=== PATIENT | male | born 2000 | race Caucasian/White ===

== ENCOUNTER 2019-01-28 10:13 | Emergency (ER) | payer OTHER ==
[2019-01-28 10:26] VITALS: BMI 28.1
[2019-01-28] MEDS ORDERED: KETOROLAC TROMETHAMINE 30 MG/1 ML VIAL IVPUSH ONE (11:08)
[2019-01-28] MEDS ORDERED: SODIUM CHLORIDE 1,000 ML IV STA (11:08)
[2019-01-28] MEDS ORDERED: KETOROLAC TROMETHAMINE 30 MG/1 ML VIAL ONE (11:15)
--- NOTE | 2019-01-28 11:25 | PDOC ---
History of Present Illness - General Chief Complaint: Pain, Acute Stated Complaint: KIDNEY PAIN Time Seen by Provider: 01/28/19 10:45 History Source: Patient Exam Limitations: No Limitations - History of Present Illness Travel History: No Initial Comments: 01/28/19 11:25 18 y/o male presents to ED with complaints of right flank pain along with urinary frequency for the past few days worsening in severity. Patient states history of renal colic without surgical intervention followed by Dr. Cage. Timing/Duration: reports: getting worse Quality: reports: moderate, sharpness Abdominal Pain Onset Location: reports: RUQ, flank Pain Radiation: reports: no radiation Activities at Onset: reports: none Aggravating Factors: improves with: None Alleviating Factors: improves with: None Past History - Travel Traveled outside of the country in the last 30 days: No Close contact w/someone who was outside of country & ill: No - Past Medical History Allergies/Adverse Reactions: Allergies Allergy/AdvReac Type Severity Reaction Status Date / Time No Known Allergies Allergy Verified 01/28/19 10:20 Kidney Stones: Yes - Psycho Social/Smoking Cessation Hx Smoking History: Never smoked Hx Alcohol Use: No Drug/Substance Use Hx: No Patient Lives Alone: No Lives with/in: parents Review of Systems - Review of Systems Able to Perform ROS?: Yes Constitutional: No: Symptoms Reported HEENTM: No: Symptoms Reported Respiratory: No: Symptoms reported Cardiac (ROS): No: Symptoms Reported ABD/GI: Yes: Abdominal cramping : Yes: Flank Pain Musculoskeletal: No: Symptoms Reported Integumentary: No: Symptoms Reported Neurological: No: Symptoms reported *Physical Exam - Vital Signs Last Vital Signs Temp Pulse Resp BP Pulse Ox 98.3 F 66 16 134/87 99 01/28/19 10:20 01/28/19 10:20 01/28/19 10:20 01/28/19 10:20 01/28/19 10:20 - Physical Exam General Appearance: Yes: Nourished, Appropriately Dressed. No: Apparent Distress Gastrointestinal/Abdominal: positive: Normal Bowel Sounds, Soft, Tenderness ( Right upper quadrant right flank). negative: Distended Musculoskeletal: positive: CVA Tenderness (R) Extremity: positive: Normal Inspection Integumentary: positive: Normal Color, Warm, Moist Neurologic: positive: Motor Strength 5/5 (Ambulatory) ED Treatment Course - LABORATORY CBC & Chemistry Diagram: 01/28/19 11:20 01/28/19 11:20 - RADIOLOGY Radiology Studies Ordered: Category Date Time Status SPIRAL- RENAL-STONE CT [CT] Stat CT Scan 01/28/19 11:10 Ordered Medical Decision Making - Medical Decision Making 01/28/19 12:00 Chief complaint: Right flank and right upper quadrant pain for the past few days worsened in severity. Patient with history of renal colic exam: Right CVA and right upper quadrant right flank tenderness on exam vital signs stable. Plan : Labs, urine, IV fluids, Toradol and spiral CT ordered 01/28/19 12:08 Laboratory Tests 01/28/19 01/28/19 11:20 11:20 WBC 8.4 Hgb 14.9 Hct 45.0 MCV 74.6 L MCH 24.8 L Plt Count 391 Urine Ketones Negative Urine Blood Negative Urine Nitrite Negative Urine Bilirubin Negative Ur Leukocyte Esterase Negative 01/28/19 12:51 Laboratory Tests 01/28/19 01/28/19 01/28/19 11:20 11:20 11:20 RBC 6.03 H Hgb 14.9 Hct 45.0 MCV 74.6 L MCH 24.8 L Absolute Neuts (auto) 5.9 Sodium 138 Potassium 4.4 Chloride 101 Carbon Dioxide 29 Anion Gap 8 BUN 8.6 Creatinine 1.0 Random Glucose 89 Calcium 10.1 Total Bilirubin 0.9 AST 18 ALT 17 Alkaline Phosphatase 68 Total Protein 8.4 H Albumin 4.7 Lipase Urine Ketones Negative Urine Blood Negative Urine Bilirubin Negative Ur Leukocyte Esterase Negative 01/28/19 11:20 RBC Hgb Hct MCV MCH Absolute Neuts (auto) Sodium Potassium Chloride Carbon Dioxide Anion Gap BUN Creatinine Random Glucose Calcium Total Bilirubin AST ALT Alkaline Phosphatase Total Protein Albumin Lipase 112 Urine Ketones Urine Blood Urine Bilirubin Ur Leukocyte Esterase 01/28/19 13:40 CT of the abdomen shows several tiny kidney stones possible tiny left stones with no hydronephrosis. Prominent right lower quadrant nodules rule out mesenteric adenitis. Appendix not definitely seen but no inflammatory changes in the right lower quadrant noted. Early sigmoid diverticulosis also seen. Also noted was a small umbilical hernia with fat. Mother did text Dr. Christine to review CAT scan follow-up. Patient will be discharged home with Flomax. Otherwise f/u with urologist. Discharge - Discharge Information Problems reviewed: Yes Clinical Impression/Diagnosis: Renal colic on right side, Mesenteric adenitis Condition: Improved Disposition: HOME - Follow up/Referral Referrals: Giovany Cage MD [Staff Physician] - Tommy Paz MD [Staff Physician] - - Patient Discharge Instructions Patient Printed Discharge Instructions: DI for Kidney Stones Additional Instructions: Drink plenty of water. Take Flomax as prescribed. Take Motrin 600 mg as needed every 8 hours. Follow a bland diet for the next 72 hours and may be as tolerated. - Post Discharge Activity
[2019-01-28 11:49] LABS: URINE APPEARANCE CLEAR; URINE BILIRUBIN NEGATIVE (NEGATIVE); URINE COLOR YELLOW; URINE GLUCOSE (UA) NEGATIVE (NEGATIVE); URINE KETONE NEGATIVE (NEGATIVE); URINE LEUK ESTERASE NEGATIVE (NEGATIVE); URINE NITRITE NEGATIVE (NEGATIVE); URINE PROTEIN NEGATIVE (NEGATIVE)
[2019-01-28 11:51] LABS: BASO % 0.4 % (0-2.0); EOS % 1.6 % (0-4.5); HEMOGLOBIN 14.9 GM/dL (11.7-16.9); LYMPH % 21.9 % (8-40); MCH 24.8 pg (25.7-33.7); MCHC 33.2 g/dl (32.0-35.9); MEAN CELL VOLUME 74.6 fl (80-96); MEAN PLT VOLUME 7.7 fl (7.5-11.1); MONO % 5.9 % (3.8-10.2); NEUT % 70.2 % (42.8-82.8); PLATELET COUNT 391 K/MM3 (134-434); RBC 6.03 M/mm3 (4.00-5.60); RDW 13.5 % (11.9-15.9); WHITE BLOOD COUNT 8.4 K/mm3 (4.0-10.0)
[2019-01-28 12:20] LABS: ALBUMIN 4.7 g/dl (3.4-5.0); BILIRUBIN,TOTAL 0.9 mg/dL (0.2-1); BLOOD UREA NITROGEN 8.6 mg/dL (7-18); CALCIUM 10.1 mg/dL (8.5-10.1); POTASSIUM 4.4 mmol/L (3.5-5.1); TOT PROT 8.4 g/dl (6.4-8.2)
[2019-01-28 13:55] VITALS: BP 129/84; PULSE 62; TEMP 98.5
== END 2019-01-28 14:03 | disposition home or self-care (01) ==
LOC: JER 10:13
PROC: 3E0333Z Introduction of Anti-inflammatory into Peripheral Vein, Percutaneous Approach (ICD-10-PCS; principal; 2019-01-28)
DX: N20.0 Calculus of kidney (principal); Z87.442 Personal history of urinary calculi; I88.0 Nonspecific mesenteric lymphadenitis; K57.90 Diverticulosis of intestine, part unspecified, without perforation or abscess without bleeding; K42.9 Umbilical hernia without obstruction or gangrene
CPT/HCPCS: 36415; 74176-TC; 80053; 81003; 83690; 85025; 87086; 96374; 99283-25; J7030

== ENCOUNTER 2019-03-04 06:10 | Day surgery (SDC) | payer OTHER ==
[2019-02-26 14:57] VITALS: BMI 28.1
[2019-03-04] MEDS ORDERED: MIDAZOLAM HCL 2 MG/2 ML SINGLE DOSE VIAL ONE ×3 (08:19)
[2019-03-04] MEDS ORDERED: SUCCINYLCHOLINE CHLORIDE 200 MG/10 ML SYRINGE ONE (08:30)
[2019-03-04] MEDS ORDERED: PROPOFOL 20 ML ONE (08:30)
--- NOTE | 2019-03-04 09:28 | OP ---
Operative Note - Note: Operative Date: 03/04/19 Pre-Operative Diagnosis: Right renal stone Operation: Right ESWL Findings: 8 mm lower pole Right renal stone Surgeon: Giovany Cage Anesthesia: Fractional Estimated Blood Loss (mls): 0 Drains, Volume Out (mls): 0 Operative Report Dictated: Yes
[2019-03-04 13:11] VITALS: BP 127/77; PULSE 72; TEMP 97.4
--- NOTE | 2019-03-04 17:14 | OP ---
DATE OF OPERATION: 03/04/2019 PREOPERATIVE DIAGNOSIS: Right renal stone. POSTOPERATIVE DIAGNOSIS: Right renal stone. PROCEDURE: Right extracorporeal shock-wave lithotripsy. ATTENDING: Berenice Muhammad MD ANESTHESIA: Fractional. DESCRIPTION OF PROCEDURE: Patient was brought in the operating room and placed in supine position on the operating room table. Ultrasonography and fluoroscopy were performed. An 8-mm right lower pole stone was identified. At this point, anesthesia and preoperative antibiotics were administered. Shock-wave lithotripsy was then performed. Excellent fragmentation of the stone was noted under real time ultrasonography and fluoroscopy. No complications were noted. DISPOSITION: To recovery room. BERENICE MUHAMMAD M.D. [id number]
== END 2019-03-04 13:05 | disposition home or self-care (01) ==
LOC: JASU-SURG 06:10
PROVIDERS: ATTEND Urology
PROC: 0TF3XZZ Fragmentation in Right Kidney Pelvis, External Approach (ICD-10-PCS; principal; 2019-03-04 08:00)
DX: N20.0 Calculus of kidney (principal)

== ENCOUNTER 2020-02-18 09:24 | Emergency (ER) | payer OTHER ==
[2020-02-18 09:29] VITALS: BP 139/99; PULSE 74; TEMP 98.8; BMI 32.6
[2020-02-18] MEDS ORDERED: TAMSULOSIN HCL 0.4 MG CAP PO ONE (09:50)
[2020-02-18] MEDS ORDERED: KETOROLAC TROMETHAMINE 30 MG/1 ML VIAL IM ONE (09:50)
[2020-02-18] MEDS ORDERED: SODIUM CHLORIDE 1,000 ML IV STA (09:50)
[2020-02-18] MEDS ORDERED: ACETAMINOPHEN 1000 MG/100 ML VIAL (NON FORMULARY) IVPB ONE (09:56)
[2020-02-18] MEDS ORDERED: TAMSULOSIN HCL 0.4 MG CAP ONE (10:01)
[2020-02-18] MEDS ORDERED: ACETAMINOPHEN INJECTION 100 ML IVPB ONE (10:02)
[2020-02-18 10:22] LABS: BASO % 0.3 % (0-2.0); EOS % 2.7 % (0-4.5); HEMATOCRIT 45.2 % (35.4-49); HEMOGLOBIN 14.9 GM/dL (11.7-16.9); LYMPH % 16.9 % (8-40); MCH 24.2 pg (25.7-33.7); MCHC 32.9 g/dl (32.0-35.9); MEAN CELL VOLUME 73.6 fl (80-96); MEAN PLT VOLUME 7.8 fl (7.5-11.1); MONO % 11.3 % (3.8-10.2); NEUT % 68.8 % (42.8-82.8); PLATELET COUNT 321 K/MM3 (134-434); RBC 6.15 M/mm3 (4.00-5.60); RDW 13.9 % (11.9-15.9); WHITE BLOOD COUNT 8.2 K/mm3 (4.0-10.0)
[2020-02-18 10:38] LABS: POTASSIUM 4.6 mmol/L (3.5-5.1)
[2020-02-18 10:40] LABS: CALCIUM 9.6 mg/dL (8.5-10.1)
[2020-02-18 10:41] LABS: ALBUMIN 4.8 g/dl (3.4-5.0); BLOOD UREA NITROGEN 12.4 mg/dL (7-18)
[2020-02-18 10:44] LABS: CREATININE 1.1 mg/dL (0.55-1.3)
[2020-02-18 10:45] LABS: BILIRUBIN,TOTAL 0.7 mg/dL (0.2-1)
[2020-02-18 10:46] LABS: TOT PROT 8.5 g/dl (6.4-8.2)
[2020-02-18 12:30] LABS: EPI CELLS 23 /uL (0-25.1); HYALINE CASTS 5 /uL (0-3.1); URINE APPEARANCE CLOUDY; URINE BACTERIA 8 /uL (0-1359); URINE BILIRUBIN NEGATIVE (NEGATIVE); URINE COLOR DK YELLOW; URINE GLUCOSE (UA) NEGATIVE (NEGATIVE); URINE KETONE TRACE (NEGATIVE); URINE LEUK ESTERASE NEGATIVE (NEGATIVE); URINE NITRITE NEGATIVE (NEGATIVE); URINE PROTEIN 1+ (NEGATIVE); URINE RBC 103 /uL (0-23.9); URINE WBC 19 /uL (0-25.8)
== END 2020-02-18 12:57 | disposition home or self-care (01) ==
LOC: JER 09:24
PROC: 3E0333Z Introduction of Anti-inflammatory into Peripheral Vein, Percutaneous Approach (ICD-10-PCS; principal; 2020-02-18)
PROC: 3E0337Z Introduction of Electrolytic and Water Balance Substance into Peripheral Vein, Percutaneous Approach (ICD-10-PCS; 2020-02-18)
DX: R10.9 Unspecified abdominal pain (principal); R31.9 Hematuria, unspecified
CPT/HCPCS: 36415; 76775-TC; 80053; 81003; 85025; 87086; 87491; 87591; 99285-25; J0131